=== PATIENT | male | born 1995 | race Hispanic/Latino ===

== ENCOUNTER 2017-01-07 02:23 | Emergency (ER) | payer BC, SELFPAY ==
[2017-01-07 03:00] LABS: Hematocrit 40.8 % (42.0-52.0); Mean Platelet Volume 6.8 fL (7.4-10.4); White Blood Cell (WBC) Count 10.6 thou/uL (4.8-10.8)
[2017-01-07 03:11] LABS: ALT (SGPT) 29 U/L (8-55); AST (SGOT) 28 U/L (10-45); Alkaline Phosphatase 99 U/L (Less than 750); Anion Gap 10 mmol/L (10-20); BUN (Urea Nitrogen) 8 mg/dL (8.4-21.0); Bilirubin, Total 0.5 mg/dL (0.2-1.2); Calc. Creatinine Clearance 0 mL/min (70-130); Calcium 8.1 mg/dL (7.8-10.44); Carbon Dioxide 25 mmol/L (22-29); Chloride 110 mmol/L (98-107); Estimated GFR-MDRD Greater than 90; Globulin 2.7 g/dL (2.4-3.5); Lipase 8 U/L (8-78); Protein, Total 6.3 g/dL (6.0-8.3)
[2017-01-07 03:31] LABS: Neutrophil 20 % (31-61); Reactive Lymphocytes 20 % (0-10)
[2017-01-07] MEDS ORDERED: Potassium Chloride 20 MEQ TAB ONE (03:38)
[2017-01-07] MEDS ORDERED: Ondansetron HCl/PF 4 MG/2 ML Vial ONE (03:38)
--- NOTE | 2017-01-07 08:22 | CT ---
PRELIMINARY REPORT/[facility]/EMERGENCY AFTER HOURS PROCEDURE: EXAM: CT Head Without Intravenous Contrast CLINICAL HISTORY: Confusion or disorientation; TECHNIQUE: Axial computed tomography images of the head/brain without intravenous contrast. COMPARISON: No relevant prior studies available. FINDINGS: Brain: No acute findings. No hemorrhage. No significant white matter disease. No edema. Ventricles: No acute findings. No ventriculomegaly. Bones/joints: No acute findings. No acute fracture. Soft tissues: No acute findings. Sinuses: Unremarkable as visualized. No acute sinusitis. Mastoid air cells: Unremarkable as visualized. No mastoid effusion. IMPRESSION: No acute intracranial pathology. Thank you for allowing us to participate in the care of your patient. Dictated and Authenticated by: Babak Hutson MD 01/07/2017 3:03 AM Central Time ([place] \T\ [place]) FINAL REPORT EMERGENCY AFTER HOURS CT BRAIN WITHOUT CONTRAST: Date: 01/07/17 FINDINGS/IMPRESSION: I agree with the findings and impression given in the preliminary report per [facility] physician. No evid ence of acute intracranial abnormality. POS: [facility]
== END 2017-01-07 04:35 | disposition home or self-care (01) ==
LOC: ERS 02:23
DX: F10.129 Alcohol abuse with intoxication, unspecified (principal); E87.6 Hypokalemia; F17.200 Nicotine dependence, unspecified, uncomplicated
CPT/HCPCS: 36415; 70450; 80053; 83690; 85025; 93005; 96374; J2405